=== PATIENT | male | born 1975 | race Caucasian/White ===

== ENCOUNTER → 2016-03-25 | Outpatient (CLI) | payer BC ==
[~2016-03-25] MED LIST: NZRCR TOP; TRAM-10 PO; TRIA1SPR4 NAE
[2016-03-25 17:18] LABS: BASO % 1.1 %; BASO ABS # 0.08 K/uL (0-0.2); COMPLETE YES; EOS % 2.1 %; IG% 0.4 %; LYMPH % 34.3 %; LYMPH ABS # 2.41 K/uL (1.2-3.4); MEAN CELL VOLUME 91.9 fL (80-100); MEAN CORPUSCULAR HEMOGLOBIN 31.9 pg (25-34); MEAN CORPUSCULAR HGB CONC 34.8 g/dl (32-36); MEAN PLATELET VOLUME 10.8 fL (7.4-10.4); MONO % 9.8 %; NEUT % 52.3 %; PLATELET COUNT 259 K/uL (130-400); RED BLOOD COUNT 4.79 M/uL (4.7-6.1); WHITE BLOOD COUNT 7.03 K/uL (4.8-10.8)
[2016-03-25 17:26] LABS: PROTHROMBIN TIME (PATIENT) 10.6 SECONDS (9.0-12.0)
== END | disposition home or self-care (01) ==
LOC: C.LABBFT 11:42
PROVIDERS: ATTEND Internal Medicine
DX: N36.8 Other specified disorders of urethra (principal)

== ENCOUNTER → 2016-04-01 | Outpatient (CLI) | payer BC | END | disposition home or self-care (01) | LOC: C.LABSPEC 17:21 | PROVIDERS: ATTEND Urology | DX: N36.8 Other specified disorders of urethra (principal) ==

== ENCOUNTER → 2016-06-23 | Outpatient (CLI) | payer BC | END | disposition home or self-care (01) | LOC: C.PATHSPEC 13:48 | PROVIDERS: ATTEND Dermatology | DX: B07.9 Viral wart, unspecified (principal) ==

== ENCOUNTER → 2016-09-16 | Outpatient (CLI) | payer BC | END | disposition home or self-care (01) | LOC: C.PATHSPEC 16:33 | PROVIDERS: ATTEND Dermatology | DX: B07.9 Viral wart, unspecified (principal) ==

== ENCOUNTER 2016-11-25 19:38 | Emergency (ER) | payer BC ==
[~2016-11-25] VITALS: Ht 180.3 cm; Wt 84.3 kg
[2016-11-25 20:14] VITALS: Ht 180.3 cm; Wt 84.3 kg
[2016-11-25] MEDS ORDERED: NZRCR TOP (20:31)
[2016-11-25] MEDS ORDERED: TRIA1SPR4 NAE (20:31)
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
[2016-11-25] MEDS ORDERED: TRAM-10 PO (21:31)
[2016-11-25] MEDS ORDERED: TRAMADOL HCL 50 MG TAB PO STA (21:32)
[2016-11-25] MEDS ORDERED: ACETAMINOPHEN 500 MG TAB PO STA (21:32)
[2016-11-25] MEDS ORDERED: IBUPROFEN 800 MG TAB PO STA (21:32)
[2016-11-25] MEDS ORDERED: TRAMADOL HCL 50 MG HOME PACK PO ONE (21:45)
[2016-11-25 22:42] VITALS: BP 119/76; PULSE 61; TEMP 37; O2SAT 98
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
== END 2016-11-25 22:43 | disposition home or self-care (01) ==
LOC: C.EDB 19:40 → C.EDD 22:43
DX: S62.323A Displaced fracture of shaft of third metacarpal bone, left hand, initial encounter for closed fracture (principal); S63.432A Traumatic rupture of volar plate of right middle finger at metacarpophalangeal and interphalangeal joint, initial encounter; S30.811A Abrasion of abdominal wall, initial encounter; V19.9XXA Pedal cyclist (driver) (passenger) injured in unspecified traffic accident, initial encounter; Z83.3 Family history of diabetes mellitus; Z82.49 Family history of ischemic heart disease and other diseases of the circulatory system